=== PATIENT | female | born 1945 | race Caucasian/White ===

== ENCOUNTER → 2016-09-13 | Outpatient (CLI) | payer MEDICARE, OTHER ==
[~2016-09-13] MED LIST: CALCTAB5 PO; Lutein PO
--- NOTE | 2016-09-13 15:43 | MAMMOGRAPHY REPORT ---
BILATERAL DIGITAL SCREENING MAMMOGRAM WITH CAD: 09/13/2016 CLINICAL HISTORY: Routine screening. Patient has no complaints. TECHNIQUE: Bilateral CC and MLO views were obtained. Current study was also evaluated with a Compute r Aided Detection (CAD) system. COMPARISON: Comparison is made to exams dated: 09/13/2015 mammogram, 09/09/2014 mammogram, 09/08/2013 m ammogram, 09/05/2012 mammogram, 09/05/2011 mammogram, and 09/02/2010 [facility] - [facility]. BREAST COMPOSITION: The tissue of both breasts is heterogeneously dense, which may obscure small mas ses. FINDINGS: There is a stable 2.3 cm focal asymmetry in the upper outer posterior right breast. Scatt ered stable benign-appearing microcalcifications. No new suspicious mass, architectural distortion o r cluster of microcalcifications is seen. IMPRESSION: ACR BI-RADS CATEGORY 1: NEGATIVE There is no mammographic evidence of malignancy. A 1 year screening mammogram is recommended. The pa tient will receive written notification of the results. Approximately 10% of breast cancers are not detected with mammography. A negative mammographic report should not delay biopsy if a clinically suggestive mass is present. Francesca Francis M.D. ay/:09/13/2016 14:29:46 Powder Blender And Pourer: Christie BURNS(Tyson)(Reinaldo)(BD), [facility] letter sent: Normal 1/2 BI-RADS Code: ACR BI-RADS Category 1: Negative
== END | disposition home or self-care (01) ==
LOC: C.MAMM 09:18
PROVIDERS: ATTEND Family Medicine
DX: Z12.31 Encounter for screening mammogram for malignant neoplasm of breast (principal)

== ENCOUNTER 2017-03-20 10:04 | Emergency (ER) | payer MEDICARE ==
[~2017-03-20] VITALS: Ht 167.6 cm; Wt 54.7 kg
[2017-03-20 10:15] VITALS: TEMP 36.4; Ht 167.6 cm; Wt 54.7 kg
[2017-03-20] MEDS ORDERED: KETOROLAC TROMETHAMINE 30 MG/ML VIAL IV STA (10:39)
[2017-03-20] MEDS ORDERED: SODIUM CHLORIDE 0.9% 1000ML 1,000 ML IV STA (10:39)
[2017-03-20] MEDS ORDERED: FENTANYL CITRATE INJ 50 MCG/1 ML 2 ML VIAL IV PRN (10:45)
--- NOTE | 2017-03-20 10:47 | EMERGENCY ROOM VISIT NOTE ---
History Report prepared by Bradley: Vamsi Nguyen Under the Supervision of: Dr. Chico Disla M.D. First contact with patient: 10:36 Chief Complaint: URINARY SYMPTOMS Stated Complaint: CRAMPING,FREQUENT URGE TO URINATE Nursing Triage Summary: Pt presents, pale in appearance. Pt sent by [facility] for eval of possible kidney stone. Previous hx of kidney stone 10-11 yrs ago. Lower abd pain, "like a cramp". Denies flank pain. Blood in urine at [facility]. Nausea. Sx began at 0500. Pt given Zofran at [facility]. Urinary freq. Denies burning with urination. History of Present Illness The patient is a 71 year old female who presents to the Emergency Room with complaints of lower abdominal pain that began 5 hours ago. She complains of chills, difficulty urinating, and hematuria. The patient had a kidney stone 10 years ago and states her pain is similar to that episode. She denies using any blood thinners. Pt denies LOC, headache, fevers, chills, diaphoresis, visual changes, neck pain , chest pain, breathing difficulties, vomiting, diarrhea urinary symptoms, numbness, weakness, rash, or other complaints. Source of History: patient Onset: 5 hours ago Position: abdomen Timing: constant Associated Symptoms: + chills, + abdominal pain (lower abdominal pain), + urinary symptoms (difficulty urinating and hematuria), No fevers, No nausea, No diarrhea Review of Systems See HPI for pertinent positives and negatives. A total of ten systems were reviewed and were otherwise negative. Past Medical & Surgical Medical Problems: (1) Kidney stone Social History Smoking Status: Never Smoker Alcohol Use: none Marital Status: Occupation Status: retired Current/Historical Medications Scheduled Cholecalciferol (Vitamin D3), 1 TAB PO DAILY Ondasetron Odt (Zofran Odt), 4 MG SL Q6H Scheduled PRN Ibuprofen Tab (Motrin), 800 MG PO Q8H PRN for Pain Miscellaneous Medications Calcium Carbonate-Vitamin D (Calcium) Lutein-Zeaxanthin (Lutein) Allergies Coded Allergies: No Known Allergies (Unverified , 07/31/10) Physical Exam Vital Signs Date Time Temp Pulse Resp B/P (MAP) Pulse Ox O2 Delivery O2 Flow Rate FiO2 03/20/17 15:40 69 18 134/69 98 Room Air 03/20/17 14:30 68 20 95 Room Air 03/20/17 14:00 66 22 97 Room Air 03/20/17 13:30 62 17 96 Room Air 03/20/17 13:00 64 27 94 Room Air 03/20/17 13:00 63 03/20/17 12:53 85 18 149/89 99 Room Air 03/20/17 10:15 36.4 57 18 157/81 100 Room Air Physical Exam GENERAL: Awake, alert, uncomfortable appearing, in no distress HENT: Normocephalic, atraumatic. Dry mucous membranes. EYES: Normal conjunctiva. Sclera non-icteric. NECK: Supple. No nuchal rigidity. FROM. No JVD. RESPIRATORY: Clear to auscultation. CARDIAC: Regular rate, normal rhythm. Extremities warm and well perfused. Pulses equal. ABDOMEN: Soft, non-distended. Mid left flank, left lower quadrant suprapubic tenderness. No rebound or guarding. No masses. RECTAL: Deferred. MUSCULOSKELETAL: Chest examination reveals no tenderness. The back is symmetrical on inspection without obvious abnormality. There is no CVA tenderness to palpation. No joint edema. LOWER EXTREMITIES: Calves are equal size bilaterally and non-tender. No edema. No discoloration. NEURO: Normal sensorium. No sensory or motor deficits noted. SKIN: No rash or jaundice noted. Medical Decision & Procedures ER Provider Diagnostic Interpretation: Radiology results as stated below per my review and radiologist interpretation: CT SCAN OF THE ABDOMEN AND PELVIS WITH IV CONTRAST CLINICAL HISTORY: Left flank pain. Left lower quadrant abdominal pain. COMPARISON STUDY: Abdominal CT dated 11/19/2005. TECHNIQUE: Following the IV administration of 95 cc of Optiray 320, CT scan of the abdomen and pelvis is performed from the lung bases to the proximal femora. Images are reviewed in the axial, sagittal, and coronal planes. IV contrast was administered without complication. A dose lowering technique was utilized adhering to the principles of ALARA. CT DOSE: 411.02 mGycm FINDINGS: Lung bases: The heart is normal in size and without pericardial effusion. The lung bases are clear. There is a tiny hiatal hernia. Liver: The contrast-enhanced liver is normal in size, contour, and attenuation. There is no intrahepatic biliary ductal dilatation. The hepatic veins and portal veins are patent. Periportal edema is likely related to hydration status. Gallbladder: Unremarkable. Spleen: Normal in size and attenuation. Pancreas: Unremarkable. Adrenal glands: Unremarkable. Kidneys: The contrast enhanced kidneys demonstrate mild cortical atrophy. There is a 3 mm obstructing calculus at the left vesicoureteral junction seen on image #372. This causes mild to moderate left-sided hydroureteronephrosis. There is associated left-sided perinephric stranding. There is no right-sided hydronephrosis. An external pelvises seen on the right. Additional small nonobstructing renal calculi are seen bilaterally. Scattered subcentimeter cortical hypodensities likely represent cysts but are too small for definitive characterization. There is slightly diminished perfusion of the left kidney as compared to the right, likely related to obstruction. Abdominal vasculature: The abdominal aorta is normal in course and caliber noting minimal atherosclerotic calcification. Bowel: There is underdistention versus mild wall thickening involving the distal colon. Mild pericolonic infiltration is suggested around the descending colon. No bowel obstruction is seen. The appendix is not clearly identified. Peritoneum: There is no intraperitoneal free air or abdominal ascites. Lymphadenopathy: None. Pelvic viscera: The bladder, uterus, and adnexa are normal as imaged. Skeletal structures: The skeletal structures are osteopenic. There is mild to moderate lumbosacral spondylosis. No lytic or blastic lesions are seen. IMPRESSION: 1. There is a 3 mm obstructing calculus at the left vesicoureteral junction. This causes mild to moderate left-sided hydroureteronephrosis. 2. There is diminished perfusion of left kidney as compared to the right, likely related to obstruction/hydronephrosis. Correlate clinically and with urinalysis for evidence of superimposed infection. 3. Additional small nonobstructing calculi are seen bilaterally. 4. Question a mild colitis of the left colon. Clinical correlation will be required. Electronically signed by: Jhoan Zurita M.D. 03/20/2017 1:06 PM Dictated Date/Time: 03/20/2017 12:58 PM Laboratory Results 03/20/17 11:15 Red Blood Count 4.26, Mean Corpuscular Volume 92.7, Mean Corpuscular Hemoglobin 30.8, Mean Corpuscular Hemoglobin Concent 33.2, Mean Platelet Volume 10.2, Neutrophils (%) (Auto) 86.3, Lymphocytes (%) (Auto) 7.0, Monocytes (%) (Auto) 6.0, Eosinophils (%) (Auto) 0.3, Basophils (%) (Auto) 0.1, Neutrophils # (Auto) 9.22, Lymphocytes # (Auto) 0.75, Monocytes # (Auto) 0.64, Eosinophils # (Auto) 0.03, Basophils # (Auto) 0.01 03/20/17 11:15 Test 03/20/17 10:36 03/20/17 11:15 Urine Color YELLOW Urine Appearance CLOUDY (CLEAR) Urine pH 5.0 (4.5-7.5) Urine Specific Bagley 1.025 (1.000-1.030) Urine Protein TRACE (NEG) Urine Glucose (UA) NEG (NEG) Urine Ketones TRACE (NEG) Urine Occult Blood 3+ (NEG) Urine Nitrite NEG (NEG) Urine Bilirubin NEG (NEG) Urine Urobilinogen NEG (NEG) Urine Leukocyte Esterase NEG (NEG) Urine WBC (Auto) 1-5 /hpf (0-5) Urine RBC (Auto) >30 /hpf (0-4) Urine Hyaline Casts (Auto) 5-10 /lpf (0-5) Urine Epithelial Cells (Auto) 20-30 /lpf (0-5) Urine Bacteria (Auto) NEG (NEG) White Blood Count 10.68 K/uL (4.8-10.8) Red Blood Count 4.26 M/uL (4.2-5.4) Hemoglobin 13.1 g/dL (12.0-16.0) Hematocrit 39.5 % (37-47) Mean Corpuscular Volume 92.7 fL (80-100) Mean Corpuscular Hemoglobin 30.8 pg (25-34) Mean Corpuscular Hemoglobin Concent 33.2 g/dl (32-36) Platelet Count 266 K/uL (130-400) Mean Platelet Volume 10.2 fL (7.4-10.4) Neutrophils (%) (Auto) 86.3 % Lymphocytes (%) (Auto) 7.0 % Monocytes (%) (Auto) 6.0 % Eosinophils (%) (Auto) 0.3 % Basophils (%) (Auto) 0.1 % Neutrophils # (Auto) 9.22 K/uL (1.4-6.5) Lymphocytes # (Auto) 0.75 K/uL (1.2-3.4) Monocytes # (Auto) 0.64 K/uL (0.11-0.59) Eosinophils # (Auto) 0.03 K/uL (0-0.5) Basophils # (Auto) 0.01 K/uL (0-0.2) RDW Standard Deviation 48.7 fL (36.4-46.3) RDW Coefficient of Variation 14.5 % (11.5-14.5) Immature Granulocyte % (Auto) 0.3 % Immature Granulocyte # (Auto) 0.03 K/uL (0.00-0.02) Anion Gap 6.0 mmol/L (3-11) Est Creatinine Clear Calc Drug Dose 42.4 ml/min Estimated GFR () 63.2 Estimated GFR (Non- 54.5 BUN/Creatinine Ratio 26.6 (10-20) Calcium Level 9.0 mg/dl (8.5-10.1) Total Bilirubin 0.4 mg/dl (0.2-1) Direct Bilirubin < 0.1 mg/dl (0-0.2) Aspartate Amino Transf (AST/SGOT) 28 U/L (15-37) Alanine Aminotransferase (ALT/SGPT) 34 U/L (12-78) Alkaline Phosphatase 63 U/L (45-117) Total Protein 6.5 gm/dl (6.4-8.2) Albumin 3.6 gm/dl (3.4-5.0) Lipase 100 U/L (73-393) Laboratory results reviewed by me Medications Administered Medications (Trade) Dose Ordered Sig/Dionisio Route Start Time Stop Time Status Last Admin Dose Admin Sodium Chloride 1,000 ml @ 999 mls/hr Q1H1M STAT IV 03/20/17 10:39 03/20/17 11:39 DC 03/20/17 11:13 999 MLS/HR Fentanyl Citrate (Fentanyl Inj) 50 mcg Q20M PRN IV 03/20/17 10:45 03/20/17 16:26 DC 03/20/17 11:14 50 MCG Ketorolac Tromethamine (Toradol Inj) 15 mg NOW STAT IV 03/20/17 10:39 03/20/17 10:42 DC 03/20/17 11:14 15 MG Ondansetron HCl (Zofran Inj) 4 mg NOW STAT IV 03/20/17 12:44 1/23/18 12:45 DC 03/20/17 12:49 4 MG Oxycodone HCl (Roxicodone Immediate Rel 5MG Home Pack) 1 homepack UD ONCE PO 03/20/17 15:45 03/20/17 15:46 DC 03/20/17 15:45 1 HOMEPACK ED Course 1036: The patient was evaluated in room C4 A complete history and physical exam was performed. 1520: I checked on the patient and they are doing better. 1530: I reevaluated the patient. Discussed results and discharge instructions: She verbalized understanding and agreement. The patient is ready for discharge. Medical Decision I reviewed the patient's past medical history, medications, and the nursing notes as described above. The patient's presentation and history were concerning for ureteral stone, UTI, Pyelonephritis, diverticulitis, colitis, hemorrhagic cyst, ovarian torsion among others. The patient is a 71 y/o woman with a pmhx of renal stones presents to the emergency department with left flank pain per HPI. On arrival the patient is uncomfortable but in NAD, AFVSS. UA with gross blood, negative for infection. Labs unremarkable including wbc wnl. CT demonstrates 3mm left ureteral stone at UVJ with associated hydronephrosis. Patient feeling improved after IVF and analgesia. Plan for pcp f/u. Given size and high likelihood of spontaneous passage no need for urology f/u unless symptoms persist. Findings and plan for follow-up reviewed with patient. Patient agreeable and d/c'd per discharge instructions. Medication Reconcilliation Current Medication List: was personally reviewed by me Blood Pressure Screening Patient's blood pressure: Elevated blood pressure Blood pressure disposition: Elevated BP felt to be situational Impression Primary Impression: Ureterolithiasis Scribe Attestation The scribe's documentation has been prepared under my direction and personally reviewed by me in its entirety. I confirm that the note above accurately reflects all work, treatment, procedures, and medical decision making performed by me. Departure Information Dispostion Home / Self-Care Prescriptions Ondasetron Odt (ZOFRAN ODT) 4 Mg Tab 4 MG SL Q6H for Nausea, #10 TAB Prov: Chico Disla M.D. 03/20/17 Ibuprofen Tab (MOTRIN) 800 Mg Tab 800 MG PO Q8H Y for Pain, #21 TAB Prov: Chico Disla M.D. 03/20/17 Referrals No Doctor, Assigned (PCP) Mckenna Us MD Patient Instructions Kidney Stones, [facility] Additional Instructions Please follow up with your primary care physician in the next 1-3 days for re- evaluation if symptoms persistent then you may contact urology for additional evaluation. You were found to have a 3mm obstructing kidney stone, which has a high probability of passing on its own. Otherwise, your exam, CT scan, and lab results did not show signs of an emergent condition at this time. Acetaminophen or ibuprofen for pain and fevers as needed. Oxycodone for breakthrough pain as needed. Zofran as needed for nausea. Drink plenty of fluids to ensure hydration. Return to the emergency department for worsening symptoms as described in the accompanying instructions.
[2017-03-20] MEDS ORDERED: OPTIRAY 320 IV PRN (11:00)
[2017-03-20] MEDS ORDERED: LUTE15CA (11:12)
[2017-03-20] MEDS ORDERED: CALC-51 (11:12)
[2017-03-20] MEDS ORDERED: CHOL1000 PO (11:12)
[2017-03-20 11:32] LABS: BASO % 0.1 %; BASO ABS # 0.01 K/uL (0-0.2); EOS % 0.3 %; EOS ABS # 0.03 K/uL (0-0.5); HEMATOCRIT 39.5 % (37-47); HEMOGLOBIN 13.1 g/dL (12.0-16.0); IG# 0.03 K/uL (0.00-0.02); LYMPH ABS # 0.75 K/uL (1.2-3.4); MEAN CELL VOLUME 92.7 fL (80-100); MEAN CORPUSCULAR HEMOGLOBIN 30.8 pg (25-34); MEAN CORPUSCULAR HGB CONC 33.2 g/dl (32-36); MEAN PLATELET VOLUME 10.2 fL (7.4-10.4); MONO ABS # 0.64 K/uL (0.11-0.59); NEUT % 86.3 %; NEUT ABS # 9.22 K/uL (1.4-6.5); PLATELET COUNT 266 K/uL (130-400); RED CELL DISTRIBUTION WIDTH CV 14.5 % (11.5-14.5); RED CELL DISTRIBUTION WIDTH SD 48.7 fL (36.4-46.3); WHITE BLOOD COUNT 10.68 K/uL (4.8-10.8)
[2017-03-20 12:10] LABS: ALBUMIN 3.6 gm/dl (3.4-5.0); ALKALINE PHOSPHATASE 63 U/L (45-117); ALT/SGPT 34 U/L (12-78); AST/SGOT 28 U/L (15-37); BLOOD UREA NITROGEN 27 mg/dl (7-18); CARBON DIOXIDE 27 mmol/L (21-32); CREATININE 1.02 mg/dl (0.60-1.20); GLUCOSE 156 mg/dl (70-99); LIPASE 100 U/L (73-393); SODIUM 139 mmol/L (136-145); TOTAL PROTEIN 6.5 gm/dl (6.4-8.2)
[2017-03-20] MEDS ORDERED: ONDANSETRON INJ 2 MG/ML 2 ML VIAL IV STA (12:44)
--- NOTE | 2017-03-20 13:08 | DIAGNOSTIC IMAGING REPORT ---
CT SCAN OF THE ABDOMEN AND PELVIS WITH IV CONTRAST CLINICAL HISTORY: Left flank pain. Left lower quadrant abdominal pain. COMPARISON STUDY: Abdominal CT dated 11/19/2005. TECHNIQUE: Following the IV administration of 95 cc of Optiray 320, CT scan of the abdomen and pelvis is performed from the lung bases to the proximal femora. Images are reviewed in the axial, sagittal, and coronal planes. IV contrast was administered without complication. A dose lowering technique was utilized adhering to the principles of ALARA. CT DOSE: 411.02 mGycm FINDINGS: Lung bases: The heart is normal in size and without pericardial effusion. The lung bases are clear. There is a tiny hiatal hernia. Liver: The contrast-enhanced liver is normal in size, contour, and attenuation. There is no intrahepatic biliary ductal dilatation. The hepatic veins and portal veins are patent. Periportal edema is likely related to hydration status. Gallbladder: Unremarkable. Spleen: Normal in size and attenuation. Pancreas: Unremarkable. Adrenal glands: Unremarkable. Kidneys: The contrast enhanced kidneys demonstrate mild cortical atrophy. There is a 3 mm obstructing calculus at the left vesicoureteral junction seen on image #372. This causes mild to moderate left-sided hydroureteronephrosis. There is associated left-sided perinephric stranding. There is no right-sided hydronephrosis. An external pelvises seen on the right. Additional small nonobstructing renal calculi are seen bilaterally. Scattered subcentimeter cortical hypodensities likely represent cysts but are too small for definitive characterization. There is slightly diminished perfusion of the left kidney as compared to the right, likely related to obstruction. Abdominal vasculature: The abdominal aorta is normal in course and caliber noting minimal atherosclerotic calcification. Bowel: There is underdistention versus mild wall thickening involving the distal colon. Mild pericolonic infiltration is suggested around the descending colon. No bowel obstruction is seen. The appendix is not clearly identified. Peritoneum: There is no intraperitoneal free air or abdominal ascites. Lymphadenopathy: None. Pelvic viscera: The bladder, uterus, and adnexa are normal as imaged. Skeletal structures: The skeletal structures are osteopenic. There is mild to moderate lumbosacral spondylosis. No lytic or blastic lesions are seen. IMPRESSION: 1. There is a 3 mm obstructing calculus at the left vesicoureteral junction. This causes mild to moderate left-sided hydroureteronephrosis. 2. There is diminished perfusion of left kidney as compared to the right, likely related to obstruction/hydronephrosis. Correlate clinically and with urinalysis for evidence of superimposed infection. 3. Additional small nonobstructing calculi are seen bilaterally. 4. Question a mild colitis of the left colon. Clinical correlation will be required. Electronically signed by: Jhoan Zurita M.D. 03/20/2017 1:06 PM Dictated Date/Time: 03/20/2017 12:58 PM
[2017-03-20] MEDS ORDERED: IBUP-1451 PO (15:31)
[2017-03-20] MEDS ORDERED: ONDA4TAB10 SL (15:31)
[2017-03-20 15:40] VITALS: BP 134/69; PULSE 69; O2SAT 98
[2017-03-20] MEDS ORDERED: OXYCODONE IR HOME PACK PO ONE (15:45)
== END 2017-03-20 15:57 | disposition home or self-care (01) ==
LOC: C.EDB 10:06 → C.EDC 15:57
DX: N20.1 Calculus of ureter (principal); R31.9 Hematuria, unspecified; Z87.442 Personal history of urinary calculi

== ENCOUNTER → 2017-09-17 | Outpatient (CLI) | payer MEDICARE ==
[~2017-09-17] MED LIST changes: +CALC-51; -CALCTAB5 PO; +CHOL1000 PO; +IBUP-1451 PO; +LUTE15CA; -Lutein PO; +ONDA4TAB10 SL
--- NOTE | 2017-09-18 07:30 | MAMMOGRAPHY REPORT ---
BILATERAL DIGITAL SCREENING MAMMOGRAM TOMOSYNTHESIS WITH CAD: 09/17/2017 CLINICAL HISTORY: Routine screening. Patient has no complaints. TECHNIQUE: The study was acquired using full field digital technology and interpreted from soft copy. Breast tomosynthesis in addition to standard 2D mammography was performed. Current study was also ev aluated with a Computer Aided Detection (CAD) system. COMPARISON: Comparison is made to exams dated: 09/13/2016 mammogram, 09/13/2015 mammogram, 09/09/2014 m ammogram, 09/08/2013 mammogram, 09/05/2012 mammogram, and 09/05/2011 mammogram - [facility] enter. BREAST COMPOSITION: The tissue of both breasts is heterogeneously dense, which may obscure small mass es. FINDINGS: There is stable asymmetry in the superior posterior right breast on the MLO view, and a few scattered benign rim calcifications. No suspicious mass, architectural distortion or cluster of microcalcific ations is seen. IMPRESSION: ACR BI-RADS CATEGORY 1: NEGATIVE There is no mammographic evidence of malignancy. A 1 year screening mammogram is recommended.( 019) The patient will receive written notification of the results. Some breast cancers are not detected with mammography. A negative mammographic report should not consuelo y biopsy if a clinically suggestive mass is present. Francesca Francis M.D. ay/:09/17/2017 08:37:30 Glassware Finisher: RT Hong(Tyson)(M), [facility] letter sent: Normal 1/2 BI-RADS Code: ACR BI-RADS Category 1: Negative
== END | disposition home or self-care (01) ==
LOC: C.MAMM 08:05
PROVIDERS: ATTEND Family Medicine
DX: Z12.31 Encounter for screening mammogram for malignant neoplasm of breast (principal)